=== PATIENT | male | born 1935 | race African-American/Black ===

== ENCOUNTER 2020-06-16 11:46 | Inpatient (IN) ==
[2020-06-16] MEDS ORDERED: ETOMIDATE 20 MG/10 ML VIAL IV ONE (11:57)
[2020-06-16] MEDS ORDERED: ROCURONIUM 100 MG/10 ML VIAL IV ONE (11:58)
[2020-06-16] MEDS ORDERED: SODIUM CHLORIDE 0.9% 1,000 ML IV STA (11:58)
[2020-06-16 12:16] LABS: Basophils % 0.1 % (0.0-0.8); Eosinophils % 0.1 % (0.00-10.9); Hemoglobin 12.5 GM/DL (14.0-18.0); Immature Granulocytes % 1.1 %; Immature Granulocytes Absolute 0.14 #; Lymphocytes # 1.2 10*3/uL (1.4-4.0); Lymphocytes % 9.2 % (21.2-54.2); Mean Corpuscular HGB Conc 32.1 GM/DL (32-36); Mean Corpuscular Volume 70.3 FL (87-102); Mean Platelet Volume 11.1 FL (9.6-12.0); Monocytes % 6.4 % (1.7-12.7); Neutrophils % 83.1 % (38.7-73.9); Platelet Count 323 T/CUMM (130-400); Red Blood Count 5.55 MC/CUMM (3.8-5.5); Red Cell Distribution Width 18.1 % (9.3-17.3); White Blood Count 13.3 T/CUMM (4-12)
[2020-06-16 12:36] LABS: INR 1.2; PT Patient Result 12.4 SECS (9.8-11.9); Partial Thromboplastin Time 27.1 SECS (23.9-33.8)
[2020-06-16] MEDS ORDERED: ASPIRIN 300 MG SUPP RECTAL STA (12:44)
[2020-06-16 12:47] LABS: Albumin 2.3 G/DL (3.4-5.0); Bilirubin,Total 0.9 MG/DL (0.2-1.0); Osmolality,Calculated 289.4 MOS/KG (273-304); Thyroid Stimulating Hormone 2.43 uIU/ml (0.358-3.74)
[2020-06-16] MEDS ORDERED: HEPARIN 5,000 UNIT/1 ML VIAL IV STA (12:47)
[2020-06-16 13:18] LABS: Bilirubin,Urine Negative (Negative); Blood, Urine Negative (Negative); Glucose,Urine (UA) 50 mg/dL (Negative); Ketones,Urine Negative (Negative); Mucus,Urine Occasional /LPF (Occasional); Nitrite,Urine Negative (Negative); Protein,Urine 100 MG/DL; RBC,Urine 8 /HPF (0-4); Squamous Epithelial Cell,Urine Occasional /HPF (0-10); Urine Appearance CLEAR (Clear); Urine Color Amber (Yellow); Urine Specific Gravity 1.024 (1.001-1.035); WBC,Urine 7 /HPF (0-6)
[2020-06-16 13:33] LABS: Barbiturates Screen,Urine Negative (Negative); Benzodiazepines Screen,Urine Negative (Negative); Cannabinoid Screen,Urine Negative (Negative); Opiate Screen,Urine Negative (Negative); Phencyclidine Screen,Urine Negative (Negative)
[2020-06-16] MEDS ORDERED: ATORVASTATIN 80 MG TABLET PEG STA (13:56)
[2020-06-16 13:58] LABS: ABG Base Excess 0.4 MMOL/L (-2.5-2.5); ABG HCO3 24.9 MMOL/L (20-26); ABG PCO2 36.6 MM HG (35-48); ABG PH 7.432 (7.35-7.45); ABG TCO2 21.6 MMOL/L (23-27)
[2020-06-16] MEDS ORDERED: ALBUTEROL 2.5 MG/3 ML NEB RESP TX PRN (13:58)
[2020-06-16] MEDS ORDERED: carvediloL 6.25 MG TABLET PEG STA (14:52)
[2020-06-16] MEDS: amLODIPine 5 MG TABLET PEG SCH (16:08)
[2020-06-16 16:15] LABS: CKMB % 2.1 %
[2020-06-16 16:20] LABS: Troponin I 6.05 NG/ML (0.00-0.045)
[2020-06-16] MEDS: SODIUM CHLORIDE 0.9% 1,000 ML IV SCH (16:45)
[2020-06-16] MEDS: ENOXAPARIN 100 MG/ML SYRINGE SUBCUT SCH (16:45)
[2020-06-16] MEDS ORDERED: carvediloL 12.5 MG TABLET PO SCH (17:00)
[2020-06-16] MEDS: PIPERACILLIN/TAZOBACTAM 3,375 MG in SODIUM CHLORIDE 0.9% 100 ML IV SCH (17:35)
[2020-06-16 17:54] LABS: CKMB % 2.1 %
[2020-06-16 17:56] LABS: Troponin I 5.64 NG/ML (0.00-0.045)
[2020-06-16] MEDS: carvediloL 12.5 MG TABLET PO SCH (20:50)
[2020-06-16] MEDS: ASCORBIC ACID 500 MG TABLET PEG SCH (20:50)
[2020-06-16] MEDS: MORPHINE 4 MG/1 ML VIAL IV PRN (20:50)
[2020-06-16] MEDS: ATORVASTATIN 10 MG TABLET PEG SCH (20:50)
[2020-06-16] MEDS ORDERED: ATORVASTATIN 40 MG TABLET PEG SCH (21:00)
[2020-06-16] MEDS ORDERED: carvediloL 25 MG TABLET PEG SCH (21:00)
[2020-06-16] MEDS ORDERED: METOPROLOL TARTRATE 25 MG TABLET PEG SCH (21:00)
[2020-06-17] MEDS: PIPERACILLIN/TAZOBACTAM 3,375 MG in SODIUM CHLORIDE 0.9% 100 ML IV SCH ×3 (01:15→16:50)
[2020-06-17] MEDS: SODIUM CHLORIDE 0.9% 1,000 ML IV SCH ×4 (01:15→20:15)
[2020-06-17 02:17] LABS: Basophils % 0.1 % (0.0-0.8); Eosinophils % 0.1 % (0.00-10.9); Hematocrit 34.4 VOL% (42.0-52.0); Immature Granulocytes % 0.9 %; Immature Granulocytes Absolute 0.12 #; Lymphocytes # 1.4 10*3/uL (1.4-4.0); Lymphocytes % 10.2 % (21.2-54.2); Mean Corpuscular Volume 70.2 FL (87-102); Mean Platelet Volume 10.4 FL (9.6-12.0); Monocytes % 10.9 % (1.7-12.7); Neutrophils % 77.8 % (38.7-73.9); Platelet Count 281 T/CUMM (130-400); Red Cell Distribution Width 16.9 % (9.3-17.3)
[2020-06-17 02:45] LABS: Albumin 1.9 G/DL (3.4-5.0); Bilirubin,Direct 0.56 MG/DL (0.0-0.20); Bilirubin,Indirect 0.4 MG/DL (0.0-1.0); Calcium 8.7 MG/DL (8.5-10.1); Osmolality,Calculated 289.1 MOS/KG (273-304); Total Protein 6.8 G/DL (6.4-8.3)
[2020-06-17 02:51] LABS: Risk Ratio 7.73; VLDL CHOLESTEROL 16.6 MG/DL
[2020-06-17 04:20] LABS: ABG Base Excess 1.2 MMOL/L (-2.5-2.5); ABG HCO3 25.5 MMOL/L (20-26); ABG PCO2 22.3 MM HG (35-48); ABG TCO2 19.3 MMOL/L (23-27)
[2020-06-17 04:30] LABS: ABG PH 7.594 (7.35-7.45)
[2020-06-17] MEDS: ENOXAPARIN 100 MG/ML SYRINGE SUBCUT SCH ×2 (04:41→14:53)
[2020-06-17 08:01] LABS: ABG Base Excess 0.5 MMOL/L (-2.5-2.5); ABG HCO3 24.9 MMOL/L (20-26); ABG PCO2 22.2 MM HG (35-48); ABG PH 7.586 (7.35-7.45); ABG TCO2 18.9 MMOL/L (23-27)
[2020-06-17] MEDS: ASPIRIN CHEW 81 MG TABLET PO SCH (08:22)
[2020-06-17] MEDS: ASCORBIC ACID 500 MG TABLET PEG SCH ×2 (08:22→21:08)
[2020-06-17] MEDS: carvediloL 12.5 MG TABLET PO SCH (08:22)
[2020-06-17] MEDS: POLYETHYLENE GLYCOL POWDER 17 GM PACK PO SCH (08:23)
[2020-06-17] MEDS: amLODIPine 5 MG TABLET PEG SCH (08:23)
[2020-06-17] MEDS: FERROUS SULFATE 325 MG TABLET PO SCH (08:23)
[2020-06-17] MEDS: LATANOPROST 0.005% OPH SOLN 2.5 ML BOTTLE BOTH EYES SCH (08:24)
[2020-06-17] MEDS ORDERED: PANTOPRAZOLE 40 MG TABLET PO SCH (09:00)
[2020-06-17] MEDS ORDERED: ASPIRIN CHEW 81 MG TABLET PO SCH (09:00)
[2020-06-17] MEDS ORDERED: SODIUM CHLORIDE 0.9% 500 ML IV ONE (10:50)
[2020-06-17] MEDS ORDERED: carvediloL 6.25 MG TABLET PEG ONE (12:06)
[2020-06-17] MEDS: VANCOMYCIN INJ 1,250 MG in SODIUM CHLORIDE 0.9% 250 ML IV SCH (14:02)
[2020-06-17] MEDS: ATORVASTATIN 10 MG TABLET PEG SCH (21:08)
[2020-06-17] MEDS: carvediloL 25 MG TABLET PEG SCH (21:08)
[2020-06-17] MEDS: MORPHINE 4 MG/1 ML VIAL IV PRN (21:09)
[2020-06-18] MEDS: SODIUM CHLORIDE 0.9% 1,000 ML IV SCH ×3 (00:05→18:20)
[2020-06-18] MEDS: VANCOMYCIN INJ 1,250 MG in SODIUM CHLORIDE 0.9% 250 ML IV SCH (01:50)
[2020-06-18 02:27] LABS: Basophils % 0.2 % (0.0-0.8); Eosinophils % 0.2 % (0.00-10.9); Hematocrit 28.1 VOL% (42.0-52.0); Hemoglobin 9.2 GM/DL (14.0-18.0); Immature Granulocytes % 0.8 %; Immature Granulocytes Absolute 0.08 #; Lymphocytes # 1.5 10*3/uL (1.4-4.0); Lymphocytes % 14.4 % (21.2-54.2); Mean Corpuscular HGB Conc 32.7 GM/DL (32-36); Mean Corpuscular Volume 68.5 FL (87-102); Mean Platelet Volume 11.3 FL (9.6-12.0); Monocytes % 8.7 % (1.7-12.7); Neutrophils % 75.7 % (38.7-73.9); Platelet Count 251 T/CUMM (130-400); Red Cell Distribution Width 16.5 % (9.3-17.3); White Blood Count 10.2 T/CUMM (4-12)
[2020-06-18] MEDS: PIPERACILLIN/TAZOBACTAM 3,375 MG in SODIUM CHLORIDE 0.9% 100 ML IV SCH (02:27)
[2020-06-18] MEDS: ENOXAPARIN 100 MG/ML SYRINGE SUBCUT SCH ×2 (02:32→16:40)
[2020-06-18 02:48] LABS: Albumin 1.7 G/DL (3.4-5.0); Bilirubin,Direct 0.82 MG/DL (0.0-0.20); Bilirubin,Indirect 0.4 MG/DL (0.0-1.0); Bilirubin,Total 1.2 MG/DL (0.2-1.0); Osmolality,Calculated 293.7 MOS/KG (273-304); Total Protein 5.9 G/DL (6.4-8.3)
[2020-06-18 04:19] LABS: ABG Base Excess -3.2 MMOL/L (-2.5-2.5); ABG HCO3 21.8 MMOL/L (20-26); ABG PCO2 27.2 MM HG (35-48); ABG PH 7.465 (7.35-7.45); ABG TCO2 17.8 MMOL/L (23-27); Allen Test Positive; Pt O2 Delivery Device Ventilator
[2020-06-18] MEDS: ASPIRIN CHEW 81 MG TABLET PO SCH (09:12)
[2020-06-18] MEDS: ASCORBIC ACID 500 MG TABLET PEG SCH ×2 (09:12→20:22)
[2020-06-18] MEDS: amLODIPine 5 MG TABLET PEG SCH (09:12)
[2020-06-18] MEDS: carvediloL 25 MG TABLET PEG SCH ×2 (09:12→20:22)
[2020-06-18] MEDS: FERROUS SULFATE 325 MG TABLET PO SCH (09:13)
[2020-06-18] MEDS: POLYETHYLENE GLYCOL POWDER 17 GM PACK PO SCH (09:14)
[2020-06-18] MEDS: PANTOPRAZOLE 40 MG VIAL IV SCH (09:15)
[2020-06-18] MEDS: LATANOPROST 0.005% OPH SOLN 2.5 ML BOTTLE BOTH EYES SCH (09:21)
[2020-06-18] MEDS: ATORVASTATIN 10 MG TABLET PEG SCH (20:22)
[2020-06-19 03:23] LABS: Basophils % 0.1 % (0.0-0.8); Eosinophils % 0.1 % (0.00-10.9); Hemoglobin 10.3 GM/DL (14.0-18.0); Immature Granulocytes % 0.4 %; Immature Granulocytes Absolute 0.04 #; Lymphocytes # 1.3 10*3/uL (1.4-4.0); Lymphocytes % 13.3 % (21.2-54.2); Mean Corpuscular HGB Conc 32.2 GM/DL (32-36); Mean Corpuscular Volume 69.1 FL (87-102); Mean Platelet Volume 11.6 FL (9.6-12.0); Monocytes % 8.5 % (1.7-12.7); Neutrophils % 77.6 % (38.7-73.9); Platelet Count 271 T/CUMM (130-400); Red Blood Count 4.63 MC/CUMM (3.8-5.5)
[2020-06-19 03:38] LABS: Albumin 1.6 G/DL (3.4-5.0); Bilirubin,Direct 1.14 MG/DL (0.0-0.20); Bilirubin,Indirect 0.8 MG/DL (0.0-1.0); Bilirubin,Total 1.9 MG/DL (0.2-1.0); Calcium 8.3 MG/DL (8.5-10.1); Osmolality,Calculated 290.7 MOS/KG (273-304); Total Protein 6.1 G/DL (6.4-8.3)
[2020-06-19] MEDS ORDERED: ENOXAPARIN 40 MG/0.4 ML SYRINGE SUBCUT SCH (09:00)
[2020-06-19] MEDS: FERROUS SULFATE 325 MG TABLET PO SCH (10:07)
[2020-06-19] MEDS: ASPIRIN CHEW 81 MG TABLET PO SCH (10:07)
[2020-06-19] MEDS: PANTOPRAZOLE 40 MG VIAL IV SCH (10:07)
[2020-06-19] MEDS: carvediloL 25 MG TABLET PEG SCH ×2 (10:08→21:20)
[2020-06-19] MEDS: SODIUM CHLORIDE 0.9% 1,000 ML IV SCH ×2 (10:08→17:23)
[2020-06-19] MEDS: amLODIPine 5 MG TABLET PEG SCH (10:08)
[2020-06-19] MEDS: ENOXAPARIN 100 MG/ML SYRINGE SUBCUT SCH ×2 (10:08→21:21)
[2020-06-19] MEDS: POLYETHYLENE GLYCOL POWDER 17 GM PACK PO SCH (10:09)
[2020-06-19] MEDS: ASCORBIC ACID 500 MG TABLET PEG SCH ×2 (10:23→21:20)
[2020-06-19] MEDS: LATANOPROST 0.005% OPH SOLN 2.5 ML BOTTLE BOTH EYES SCH (11:00)
[2020-06-19] MEDS: ATORVASTATIN 10 MG TABLET PEG SCH (21:26)
[2020-06-20] MEDS: SODIUM CHLORIDE 0.9% 1,000 ML IV SCH ×3 (03:17→18:05)
[2020-06-20 05:39] LABS: Basophils % 0.1 % (0.0-0.8); Eosinophils % 0.1 % (0.00-10.9); Hematocrit 29.7 VOL% (42.0-52.0); Hemoglobin 9.8 GM/DL (14.0-18.0); Immature Granulocytes % 0.6 %; Immature Granulocytes Absolute 0.05 #; Lymphocytes # 1.2 10*3/uL (1.4-4.0); Lymphocytes % 14.8 % (21.2-54.2); Mean Corpuscular Volume 68.6 FL (87-102); Mean Platelet Volume 11.9 FL (9.6-12.0); Neutrophils % 76.4 % (38.7-73.9); Platelet Count 221 T/CUMM (130-400); Red Blood Count 4.33 MC/CUMM (3.8-5.5); Red Cell Distribution Width 16.5 % (9.3-17.3); White Blood Count 8.2 T/CUMM (4-12)
[2020-06-20 05:47] LABS: Albumin 1.5 G/DL (3.4-5.0); Bilirubin,Direct 1.08 MG/DL (0.0-0.20); Bilirubin,Indirect 0.7 MG/DL (0.0-1.0); Bilirubin,Total 1.8 MG/DL (0.2-1.0); Calcium 7.9 MG/DL (8.5-10.1); Osmolality,Calculated 290.7 MOS/KG (273-304); Total Protein 5.5 G/DL (6.4-8.3)
[2020-06-20 06:14] LABS: Hypochromasia Slight; Microcytosis 2+; Platelet Estimate Normal; Target Cells Few
[2020-06-20] MEDS: ASCORBIC ACID 500 MG TABLET PEG SCH ×2 (08:07→20:55)
[2020-06-20] MEDS: FERROUS SULFATE 325 MG TABLET PO SCH (08:07)
[2020-06-20] MEDS: carvediloL 25 MG TABLET PEG SCH ×2 (08:07→20:55)
[2020-06-20] MEDS: amLODIPine 5 MG TABLET PEG SCH (08:07)
[2020-06-20] MEDS: ASPIRIN CHEW 81 MG TABLET PO SCH (08:07)
[2020-06-20] MEDS: POLYETHYLENE GLYCOL POWDER 17 GM PACK PO SCH (08:08)
[2020-06-20] MEDS: ENOXAPARIN 100 MG/ML SYRINGE SUBCUT SCH ×2 (08:08→20:55)
[2020-06-20] MEDS: PANTOPRAZOLE 40 MG VIAL IV SCH (08:09)
[2020-06-20] MEDS: LATANOPROST 0.005% OPH SOLN 2.5 ML BOTTLE BOTH EYES SCH (09:38)
[2020-06-20] MEDS: ATORVASTATIN 10 MG TABLET PEG SCH (20:55)
[2020-06-20] MEDS: MORPHINE 4 MG/1 ML VIAL IV PRN (20:55)
[2020-06-21] MEDS: SODIUM CHLORIDE 0.9% 1,000 ML IV SCH ×2 (03:00→17:13)
[2020-06-21] MEDS: MORPHINE 4 MG/1 ML VIAL IV PRN (06:28)
[2020-06-21 08:32] LABS: Basophils % 0.1 % (0.0-0.8); Eosinophils % 0.2 % (0.00-10.9); Hemoglobin 9.9 GM/DL (14.0-18.0); Immature Granulocytes % 0.5 %; Immature Granulocytes Absolute 0.04 #; Lymphocytes # 1.3 10*3/uL (1.4-4.0); Lymphocytes % 16.5 % (21.2-54.2); Mean Platelet Volume 10.4 FL (9.6-12.0); Monocytes % 7.7 % (1.7-12.7); Platelet Count 239 T/CUMM (130-400); Red Blood Count 4.35 MC/CUMM (3.8-5.5); Red Cell Distribution Width 16.2 % (9.3-17.3); White Blood Count 8.1 T/CUMM (4-12)
[2020-06-21 08:58] LABS: Calcium 7.9 MG/DL (8.5-10.1); Osmolality,Calculated 286.8 MOS/KG (273-304)
[2020-06-21] MEDS: ASPIRIN CHEW 81 MG TABLET PO SCH (09:18)
[2020-06-21] MEDS: FERROUS SULFATE 325 MG TABLET PO SCH (09:18)
[2020-06-21] MEDS: ASCORBIC ACID 500 MG TABLET PEG SCH ×2 (09:18→20:47)
[2020-06-21] MEDS: POTASSIUM CHLORIDE 20 MEQ TABLET PO PRN (09:21)
[2020-06-21] MEDS: amLODIPine 5 MG TABLET PEG SCH (09:21)
[2020-06-21] MEDS: carvediloL 25 MG TABLET PEG SCH ×2 (09:21→20:47)
[2020-06-21] MEDS: ENOXAPARIN 100 MG/ML SYRINGE SUBCUT SCH ×2 (09:21→20:47)
[2020-06-21] MEDS: PANTOPRAZOLE 40 MG VIAL IV SCH (09:21)
[2020-06-21] MEDS: POLYETHYLENE GLYCOL POWDER 17 GM PACK PO SCH (09:26)
[2020-06-21] MEDS ORDERED: POTASSIUM CHLORIDE 20 MEQ/15 ML UDCUP PER TUBE PRN (09:44)
[2020-06-21] MEDS: LATANOPROST 0.005% OPH SOLN 2.5 ML BOTTLE BOTH EYES SCH (17:13)
[2020-06-22 05:55] LABS: Basophils % 0.1 % (0.0-0.8); Eosinophils # 0.1 10*3/uL (0.0-0.87); Eosinophils % 0.8 % (0.00-10.9); Hematocrit 29.9 VOL% (42.0-52.0); Hemoglobin 9.9 GM/DL (14.0-18.0); Immature Granulocytes % 0.5 %; Immature Granulocytes Absolute 0.04 #; Lymphocytes # 1.4 10*3/uL (1.4-4.0); Lymphocytes % 17.6 % (21.2-54.2); Mean Corpuscular HGB Conc 33.1 GM/DL (32-36); Mean Corpuscular Volume 68.6 FL (87-102); Mean Platelet Volume 11.5 FL (9.6-12.0); Monocytes % 8.3 % (1.7-12.7); Neutrophils % 72.7 % (38.7-73.9); Platelet Count 213 T/CUMM (130-400); Red Blood Count 4.36 MC/CUMM (3.8-5.5); Red Cell Distribution Width 16.4 % (9.3-17.3); White Blood Count 7.8 T/CUMM (4-12)
[2020-06-22 06:01] LABS: Calcium 7.6 MG/DL (8.5-10.1)
[2020-06-22 06:05] LABS: Calcium 7.6 MG/DL (8.5-10.1); Osmolality,Calculated 291.7 MOS/KG (273-304)
[2020-06-22 06:06] LABS: Albumin 1.4 G/DL (3.4-5.0); Calcium 7.6 MG/DL (8.5-10.1); Osmolality,Calculated 291.7 MOS/KG (273-304); Total Protein 5.3 G/DL (6.4-8.3)
[2020-06-22] MEDS ORDERED: POTASSIUM CHLORIDE 20 MEQ TABLET PO ONE (06:56)
[2020-06-22 07:28] LABS: Platelet Estimate Normal
[2020-06-22 07:29] LABS: Anisocytosis 1+; Burr Cells Few; Ovalocytes Few; Target Cells 1+
[2020-06-22] MEDS: ASPIRIN CHEW 81 MG TABLET PO SCH (09:29)
[2020-06-22] MEDS: POLYETHYLENE GLYCOL POWDER 17 GM PACK PO SCH (09:29)
[2020-06-22] MEDS: FERROUS SULFATE 325 MG TABLET PO SCH (09:29)
[2020-06-22] MEDS: ASCORBIC ACID 500 MG TABLET PEG SCH ×2 (09:29→21:44)
[2020-06-22] MEDS: carvediloL 25 MG TABLET PEG SCH ×2 (09:29→21:44)
[2020-06-22] MEDS: PANTOPRAZOLE 40 MG VIAL IV SCH (09:30)
[2020-06-22] MEDS: ENOXAPARIN 100 MG/ML SYRINGE SUBCUT SCH (09:30)
[2020-06-22] MEDS: LATANOPROST 0.005% OPH SOLN 2.5 ML BOTTLE BOTH EYES SCH (09:48)
[2020-06-22] MEDS ORDERED: LOSARTAN 25 MG TABLET PO SCH (11:49)
[2020-06-22] MEDS ORDERED: LOSARTAN 25 MG TABLET NG SCH (11:49)
[2020-06-22 19:04] LABS: Calcium 7.8 MG/DL (8.5-10.1)
[2020-06-22] MEDS: SODIUM CHLORIDE 0.9% 1,000 ML IV SCH (21:43)
[2020-06-22] MEDS: APIXABAN 2.5 MG TABLET PO SCH (21:44)
[2020-06-23] MEDS: POTASSIUM CHLORIDE 20 MEQ TABLET PO PRN ×4 (00:24→07:17)
[2020-06-23] MEDS ORDERED: ENOXAPARIN 30 MG/0.3 ML SYRINGE SUBCUT SCH ×2 (09:00→10:00)
[2020-06-23] MEDS: FERROUS SULFATE 325 MG TABLET PO SCH (09:13)
[2020-06-23] MEDS: POLYETHYLENE GLYCOL POWDER 17 GM PACK PO SCH (09:13)
[2020-06-23] MEDS: ASCORBIC ACID 500 MG TABLET PEG SCH (09:13)
[2020-06-23] MEDS: ASPIRIN CHEW 81 MG TABLET PO SCH (09:13)
[2020-06-23] MEDS: PANTOPRAZOLE 40 MG VIAL IV SCH (09:14)
[2020-06-23] MEDS: carvediloL 25 MG TABLET PEG SCH (09:14)
[2020-06-23] MEDS: APIXABAN 2.5 MG TABLET PO SCH (09:14)
[2020-06-23] MEDS: LATANOPROST 0.005% OPH SOLN 2.5 ML BOTTLE BOTH EYES SCH (09:17)
[2020-06-23] MEDS: SODIUM CHLORIDE 0.9% 1,000 ML IV SCH ×2 (09:17→09:18)
[2020-06-23 09:36] LABS: Calcium 7.3 MG/DL (8.5-10.1); Osmolality,Calculated 278.4 MOS/KG (273-304)
[2020-06-23 09:54] LABS: Basophils % 0.1 % (0.0-0.8); Eosinophils # 0.1 10*3/uL (0.0-0.87); Eosinophils % 1.1 % (0.00-10.9); Hematocrit 30.4 VOL% (42.0-52.0); Hemoglobin 9.8 GM/DL (14.0-18.0); Immature Granulocytes % 0.8 %; Immature Granulocytes Absolute 0.06 #; Lymphocytes # 1.5 10*3/uL (1.4-4.0); Lymphocytes % 20.4 % (21.2-54.2); Mean Corpuscular HGB Conc 32.2 GM/DL (32-36); Mean Corpuscular Volume 69.9 FL (87-102); Monocytes % 7.2 % (1.7-12.7); Neutrophils % 70.4 % (38.7-73.9); Platelet Count 193 T/CUMM (130-400); Red Blood Count 4.35 MC/CUMM (3.8-5.5); Red Cell Distribution Width 18.7 % (9.3-17.3); White Blood Count 7.3 T/CUMM (4-12)
[2020-06-23] MEDS ORDERED: MAGNESIUM SULF RIDER 4 GM in PREMIX 1 EACH IV PRN (09:57)
[2020-06-23] MEDS ORDERED: MAGNESIUM SULF RIDER 2 GM in PREMIX 1 EACH IV PRN (09:57)
[2020-06-23] MEDS ORDERED: LOSARTAN 25 MG TABLET PO ONE (10:02)
[2020-06-23 10:19] LABS: Hypochromasia 4+; Microcytosis 4+; Platelet Estimate Adequate; Polychromasia Slight; Target Cells Few
[2020-06-23 17:56] VITALS: BP 122/63
[2020-06-24] MEDS ORDERED: LOSARTAN 25 MG TABLET NG SCH (09:00)
== END 2020-06-23 17:23 | disposition home health service (06) | DRG 280 ==
LOC: EDUNIT# → EDBD → N.ED 11:46 → N.EDINP 13:58 → SUATTDRO 13:58 → N.ICU 14:55 → N.TELES 06-19 16:00
PROVIDERS: ADMIT Internal Medicine; ATTEND Internal Medicine

== ENCOUNTER 2020-07-06 11:09 | Inpatient (IN) ==
[2020-07-06] MEDS ORDERED: NALOXONE 0.4 MG/ML VIAL ONE (11:50)
[2020-07-06] MEDS: NALOXONE 0.4 MG/ML VIAL IV STA ×2 (11:51→11:56)
[2020-07-06] MEDS ORDERED: NALOXONE 0.4 MG/ML VIAL IV STA (11:56)
[2020-07-06 11:58] LABS: Basophils % 0.1 % (0.0-0.8); Hematocrit 27.7 VOL% (42.0-52.0); Hemoglobin 9.5 GM/DL (14.0-18.0); Immature Granulocytes % 1.3 %; Immature Granulocytes Absolute 0.29 #; Lymphocytes # 1.2 10*3/uL (1.4-4.0); Lymphocytes % 5.4 % (21.2-54.2); Mean Corpuscular HGB Conc 34.3 GM/DL (32-36); Mean Platelet Volume 11.5 FL (9.6-12.0); Monocytes % 5.9 % (1.7-12.7); NRBC # 0.04 10*3/uL; Neutrophils % 87.3 % (38.7-73.9); Platelet Count 327 T/CUMM (130-400); Red Cell Distribution Width 15.7 % (9.3-17.3); White Blood Count 21.7 T/CUMM (4-12)
[2020-07-06 12:25] LABS: Band Neutrophils 29 % (0-10); Lymphocytes 7 % (20-55); Platelet Estimate Normal; Segmented Neutrophils 58 % (50-85); Total Cells Counted 100
[2020-07-06 12:26] LABS: Anisocytosis 1+; Macrocytosis 1+; Target Cells Few
[2020-07-06 12:27] LABS: Albumin 1.3 G/DL (3.4-5.0); Bilirubin,Total 0.9 MG/DL (0.2-1.0); Calcium 8.4 MG/DL (8.5-10.1); Osmolality,Calculated 298.1 MOS/KG (273-304); Total Protein 6.4 G/DL (6.4-8.3)
[2020-07-06] MEDS ORDERED: SODIUM CHLORIDE 0.9% 1,000 ML IV STA (14:00)
[2020-07-06] MEDS: PIPERACILLIN/TAZOBACTAM 3,375 MG in SODIUM CHLORIDE 0.9% 100 ML IV SCH (14:10)
[2020-07-06 14:16] LABS: Bacteria,Urine Many /HPF (Few); Bilirubin,Urine Negative (Negative); Blood, Urine Large mg/dL (Negative); Glucose,Urine (UA) Negative (Negative); Ketones,Urine Negative (Negative); Mucus,Urine Few /LPF (Occasional); Nitrite,Urine Negative (Negative); Protein,Urine 100 MG/DL; RBC,Urine 782 /HPF (0-4); Urine Appearance CLOUDY (Clear); Urine Color Amber (Yellow); WBC,Urine 718 /HPF (0-6)
[2020-07-06] MEDS ORDERED: ONDANSETRON 4 MG/2 ML VIAL IV PRN (15:14)
[2020-07-06] MEDS ORDERED: ALBUTEROL 2.5 MG/3 ML NEB RESP TX PRN (15:14)
[2020-07-06] MEDS ORDERED: SODIUM CHLORIDE 0.9% IV STA (15:16)
[2020-07-06] MEDS: FAMOTIDINE 20 MG/2 ML VIAL IV SCH (16:00)
[2020-07-06] MEDS: LEVOFLOXACIN INJ 750 MG in PREMIX 1 EACH IV SCH (16:05)
[2020-07-06] MEDS: PHENYLEPHRINE DRIP 40 MG/250 ML PREMIX IV SCH (17:44)
[2020-07-06] MEDS: LACTATED RINGERS 1,000 ML IV SCH (17:45)
[2020-07-06] MEDS: ENOXAPARIN 30 MG/0.3 ML SYRINGE SUBCUT SCH (22:00)
[2020-07-07] MEDS: LACTATED RINGERS 1,000 ML IV SCH ×2 (01:45→08:45)
[2020-07-07] MEDS: PIPERACILLIN/TAZOBACTAM 3,375 MG in SODIUM CHLORIDE 0.9% 100 ML IV SCH ×2 (02:00→14:23)
[2020-07-07 03:19] LABS: ABG HCO3 21.1 MMOL/L (20-26); ABG Oxygen Saturation 98.5 % (95-100); ABG PCO2 29.9 MM HG (35-48); ABG PH 7.425 (7.35-7.45); ABG TCO2 18.1 MMOL/L (23-27)
[2020-07-07 05:20] LABS: Basophils # 0.1 10*3/uL (0.0-0.2); Basophils % 0.2 % (0.0-0.8); Eosinophils # 0.1 10*3/uL (0.0-0.87); Eosinophils % 0.3 % (0.00-10.9); Hematocrit 27.8 VOL% (42.0-52.0); Hemoglobin 9.3 GM/DL (14.0-18.0); Immature Granulocytes % 1.4 %; Immature Granulocytes Absolute 0.29 #; Lymphocytes # 1.1 10*3/uL (1.4-4.0); Lymphocytes % 5.1 % (21.2-54.2); Mean Corpuscular HGB Conc 33.5 GM/DL (32-36); Mean Platelet Volume 11.7 FL (9.6-12.0); Monocytes % 6.7 % (1.7-12.7); Neutrophils % 86.3 % (38.7-73.9); Platelet Count 266 T/CUMM (130-400); Red Blood Count 4.15 MC/CUMM (3.8-5.5); Red Cell Distribution Width 15.7 % (9.3-17.3); White Blood Count 21.1 T/CUMM (4-12)
[2020-07-07 05:51] LABS: Band Neutrophils 1 % (0-10); Hypochromasia Slight; Lymphocytes 5 % (20-55); Microcytosis 1+; Platelet Estimate Normal; Segmented Neutrophils 89 % (50-85); Total Cells Counted 100
[2020-07-07 06:01] LABS: Albumin 1.2 G/DL (3.4-5.0); Bilirubin,Total 1.3 MG/DL (0.2-1.0); Calcium 8.1 MG/DL (8.5-10.1); Osmolality,Calculated 303.8 MOS/KG (273-304); Total Protein 6.1 G/DL (6.4-8.3); Troponin I 0.085 NG/ML (0.00-0.045)
[2020-07-07] MEDS ORDERED: SODIUM BICARBONATE 50 MEQ/50 ML VIAL IV ONE (08:07)
[2020-07-07] MEDS ORDERED: SODIUM CHLORIDE 0.9% 1,000 ML IV SCH (08:30)
[2020-07-07] MEDS: SODIUM BICARB INJ 100 MEQ in STERILE WATER INJ 1,000 ML IV SCH ×2 (09:47→17:49)
[2020-07-07] MEDS: MENTHOL/ZINC OXIDE OINT 71 GM JAR TOP SCH ×2 (14:23→20:53)
[2020-07-07] MEDS: PHENYLEPHRINE DRIP 40 MG/250 ML PREMIX IV SCH ×2 (16:01→17:32)
[2020-07-07] MEDS: FAMOTIDINE 20 MG/2 ML VIAL IV SCH (16:01)
[2020-07-07] MEDS: ENOXAPARIN 30 MG/0.3 ML SYRINGE SUBCUT SCH (20:52)
[2020-07-08] MEDS: PIPERACILLIN/TAZOBACTAM 3,375 MG in SODIUM CHLORIDE 0.9% 100 ML IV SCH ×2 (02:35→14:32)
[2020-07-08] MEDS: SODIUM BICARB INJ 100 MEQ in STERILE WATER INJ 1,000 ML IV SCH ×3 (02:36→20:04)
[2020-07-08 04:48] LABS: Basophils % 0.1 % (0.0-0.8); Hematocrit 26.6 VOL% (42.0-52.0); Hemoglobin 9.1 GM/DL (14.0-18.0); Immature Granulocytes % 1.3 %; Immature Granulocytes Absolute 0.23 #; Lymphocytes # 0.8 10*3/uL (1.4-4.0); Lymphocytes % 4.5 % (21.2-54.2); Mean Corpuscular HGB Conc 34.2 GM/DL (32-36); Mean Corpuscular Volume 64.4 FL (87-102); Mean Platelet Volume 12.1 FL (9.6-12.0); Monocytes % 4.8 % (1.7-12.7); Neutrophils % 89.3 % (38.7-73.9); Platelet Count 268 T/CUMM (130-400); Red Blood Count 4.13 MC/CUMM (3.8-5.5); Red Cell Distribution Width 15.1 % (9.3-17.3); White Blood Count 17.2 T/CUMM (4-12)
[2020-07-08 05:07] LABS: Albumin 1.1 G/DL (3.4-5.0); Bilirubin,Total 1.4 MG/DL (0.2-1.0); Calcium 8.1 MG/DL (8.5-10.1); Osmolality,Calculated 318.3 MOS/KG (273-304); Total Protein 5.6 G/DL (6.4-8.3)
[2020-07-08 05:19] LABS: Band Neutrophils 4 % (0-10); Hypochromasia Slight; Lymphocytes 5 % (20-55); Microcytosis 1+; Platelet Estimate Normal; Segmented Neutrophils 90 % (50-85); Total Cells Counted 100
[2020-07-08] MEDS: MENTHOL/ZINC OXIDE OINT 71 GM JAR TOP SCH ×2 (08:34→20:58)
[2020-07-08] MEDS: PHENYLEPHRINE DRIP 40 MG/250 ML PREMIX IV SCH ×4 (09:34→23:54)
[2020-07-08] MEDS: LEVOFLOXACIN INJ 750 MG in PREMIX 1 EACH IV SCH (14:32)
[2020-07-08] MEDS: FAMOTIDINE 20 MG/2 ML VIAL IV SCH (16:54)
[2020-07-08] MEDS: ENOXAPARIN 30 MG/0.3 ML SYRINGE SUBCUT SCH (20:58)
[2020-07-09] MEDS: INSULIN REGULAR 100 UNIT/ML SUBCUT SCH ×4 (00:19→18:21)
[2020-07-09] MEDS: PIPERACILLIN/TAZOBACTAM 3,375 MG in SODIUM CHLORIDE 0.9% 100 ML IV SCH (02:29)
[2020-07-09 03:46] LABS: Basophils % 0.1 % (0.0-0.8); Hematocrit 24.9 VOL% (42.0-52.0); Hemoglobin 8.8 GM/DL (14.0-18.0); Immature Granulocytes % 3.9 %; Immature Granulocytes Absolute 0.64 #; Lymphocytes # 0.8 10*3/uL (1.4-4.0); Mean Corpuscular HGB Conc 35.3 GM/DL (32-36); Mean Corpuscular Volume 62.9 FL (87-102); Mean Platelet Volume 11.8 FL (9.6-12.0); Monocytes % 6.3 % (1.7-12.7); Neutrophils % 84.7 % (38.7-73.9); Platelet Count 249 T/CUMM (130-400); Red Blood Count 3.96 MC/CUMM (3.8-5.5); Red Cell Distribution Width 15.1 % (9.3-17.3); White Blood Count 16.4 T/CUMM (4-12)
[2020-07-09 04:05] LABS: Bilirubin,Total 1.5 MG/DL (0.2-1.0); Calcium 7.5 MG/DL (8.5-10.1); Total Protein 5.2 G/DL (6.4-8.3)
[2020-07-09] MEDS: MENTHOL/ZINC OXIDE OINT 71 GM JAR TOP SCH ×3 (04:30→21:19)
[2020-07-09 04:41] LABS: Band Neutrophils 9 % (0-10); Lymphocytes 8 % (20-55); Segmented Neutrophils 81 % (50-85)
[2020-07-09 04:42] LABS: Hypochromasia 1+; Microcytosis 2+; Platelet Estimate Normal; Target Cells Few; Total Cells Counted 100
[2020-07-09] MEDS: SODIUM BICARB INJ 100 MEQ in STERILE WATER INJ 1,000 ML IV SCH ×2 (04:52→14:46)
[2020-07-09] MEDS: PHENYLEPHRINE DRIP 40 MG/250 ML PREMIX IV SCH ×3 (06:25→22:34)
[2020-07-09] MEDS: cefTRIAXone 1,000 MG in SYRINGE 1 EACH IV SCH (12:35)
[2020-07-09] MEDS: FAMOTIDINE 20 MG/2 ML VIAL IV SCH (16:48)
[2020-07-09] MEDS: ENOXAPARIN 30 MG/0.3 ML SYRINGE SUBCUT SCH (21:19)
[2020-07-10] MEDS: INSULIN REGULAR 100 UNIT/ML SUBCUT SCH ×4 (00:50→18:00)
[2020-07-10] MEDS: SODIUM BICARB INJ 100 MEQ in STERILE WATER INJ 1,000 ML IV SCH ×2 (00:51→09:05)
[2020-07-10 04:39] LABS: Basophils % 0.1 % (0.0-0.8); Hematocrit 23.6 VOL% (42.0-52.0); Hemoglobin 8.5 GM/DL (14.0-18.0); Immature Granulocytes % 5.2 %; Immature Granulocytes Absolute 0.74 #; Lymphocytes # 1.1 10*3/uL (1.4-4.0); Lymphocytes % 7.7 % (21.2-54.2); Mean Corpuscular Volume 61.9 FL (87-102); Monocytes % 7.2 % (1.7-12.7); NRBC # 0.02 10*3/uL; Neutrophils % 79.8 % (38.7-73.9); Platelet Count 242 T/CUMM (130-400); Red Blood Count 3.81 MC/CUMM (3.8-5.5); Red Cell Distribution Width 14.9 % (9.3-17.3); White Blood Count 14.4 T/CUMM (4-12)
[2020-07-10 05:01] LABS: Bilirubin,Total 1.7 MG/DL (0.2-1.0); Calcium 7.4 MG/DL (8.5-10.1); Osmolality,Calculated 303.2 MOS/KG (273-304); Total Protein 5.1 G/DL (6.4-8.3)
[2020-07-10 05:13] LABS: Lymphocytes 6 % (20-55); Platelet Estimate Adequate; Segmented Neutrophils 86 % (50-85); Total Cells Counted 100
[2020-07-10 05:14] LABS: Hypochromasia 1+; Microcytosis 1+; Ovalocytes Slight; Target Cells Few
[2020-07-10] MEDS: MENTHOL/ZINC OXIDE OINT 71 GM JAR TOP SCH ×2 (08:35→21:33)
[2020-07-10] MEDS: SODIUM CHLORIDE 0.9% 1,000 ML IV SCH ×2 (11:06→21:33)
[2020-07-10] MEDS: cefTRIAXone 1,000 MG in SYRINGE 1 EACH IV SCH (12:23)
[2020-07-10] MEDS: FAMOTIDINE 20 MG/2 ML VIAL IV SCH (15:55)
[2020-07-10] MEDS: PHENYLEPHRINE DRIP 40 MG/250 ML PREMIX IV SCH ×2 (16:00→20:37)
[2020-07-10] MEDS: ENOXAPARIN 30 MG/0.3 ML SYRINGE SUBCUT SCH (21:33)
[2020-07-11] MEDS: INSULIN REGULAR 100 UNIT/ML SUBCUT SCH ×4 (00:08→18:19)
[2020-07-11] MEDS: PHENYLEPHRINE DRIP 40 MG/250 ML PREMIX IV SCH ×3 (01:48→16:01)
[2020-07-11 04:07] LABS: Basophils % 0.2 % (0.0-0.8); Hematocrit 23.5 VOL% (42.0-52.0); Hemoglobin 8.4 GM/DL (14.0-18.0); Immature Granulocytes % 6.7 %; Immature Granulocytes Absolute 1.23 #; Lymphocytes # 1.4 10*3/uL (1.4-4.0); Lymphocytes % 7.4 % (21.2-54.2); Mean Corpuscular HGB Conc 35.7 GM/DL (32-36); Monocytes % 7.7 % (1.7-12.7); Platelet Count 266 T/CUMM (130-400); Red Blood Count 3.79 MC/CUMM (3.8-5.5); Red Cell Distribution Width 15.2 % (9.3-17.3); White Blood Count 18.5 T/CUMM (4-12)
[2020-07-11 04:28] LABS: Bilirubin,Total 1.3 MG/DL (0.2-1.0); Calcium 7.2 MG/DL (8.5-10.1); Osmolality,Calculated 308.8 MOS/KG (273-304); Total Protein 5.2 G/DL (6.4-8.3)
[2020-07-11 04:34] LABS: Hypochromasia 2+; Lymphocytes 6 % (20-55); Microcytosis Slight; Platelet Estimate Adequate; Segmented Neutrophils 87 % (50-85); Target Cells Slight; Total Cells Counted 100
[2020-07-11] MEDS: MENTHOL/ZINC OXIDE OINT 71 GM JAR TOP SCH ×3 (05:15→21:18)
[2020-07-11] MEDS: SODIUM CHLORIDE 0.9% 1,000 ML IV SCH ×2 (06:41→16:01)
[2020-07-11] MEDS: cefTRIAXone 1,000 MG in SYRINGE 1 EACH IV SCH (11:29)
[2020-07-11] MEDS: FAMOTIDINE 20 MG/2 ML VIAL IV SCH (16:01)
[2020-07-11] MEDS: ENOXAPARIN 30 MG/0.3 ML SYRINGE SUBCUT SCH (21:18)
[2020-07-12] MEDS: PHENYLEPHRINE DRIP 40 MG/250 ML PREMIX IV SCH (00:24)
[2020-07-12] MEDS: INSULIN REGULAR 100 UNIT/ML SUBCUT SCH ×5 (01:16→23:14)
[2020-07-12] MEDS: SODIUM CHLORIDE 0.9% 1,000 ML IV SCH ×2 (02:09→12:09)
[2020-07-12] MEDS: MENTHOL/ZINC OXIDE OINT 71 GM JAR TOP SCH ×2 (08:03→20:51)
[2020-07-12] MEDS: cefTRIAXone 1,000 MG in SYRINGE 1 EACH IV SCH (12:59)
[2020-07-12] MEDS: FAMOTIDINE 20 MG/2 ML VIAL IV SCH (18:23)
[2020-07-12] MEDS: ENOXAPARIN 30 MG/0.3 ML SYRINGE SUBCUT SCH (20:52)
[2020-07-13] MEDS: SODIUM CHLORIDE 0.9% 1,000 ML IV SCH ×2 (00:50→11:43)
[2020-07-13 05:30] LABS: Basophils % 0.1 % (0.0-0.8); Hematocrit 21.3 VOL% (42.0-52.0); Hemoglobin 7.7 GM/DL (14.0-18.0); Immature Granulocytes % 4.3 %; Immature Granulocytes Absolute 0.73 #; Lymphocytes # 1.2 10*3/uL (1.4-4.0); Lymphocytes % 7.4 % (21.2-54.2); Mean Corpuscular HGB Conc 36.2 GM/DL (32-36); Mean Corpuscular Volume 61.9 FL (87-102); Mean Platelet Volume 11.4 FL (9.6-12.0); Monocytes % 6.1 % (1.7-12.7); Neutrophils % 82.1 % (38.7-73.9); Platelet Count 298 T/CUMM (130-400); Red Blood Count 3.44 MC/CUMM (3.8-5.5); Red Cell Distribution Width 15.4 % (9.3-17.3); White Blood Count 16.8 T/CUMM (4-12)
[2020-07-13 05:47] LABS: Albumin 0.9 G/DL (3.4-5.0); Bilirubin,Total 1.1 MG/DL (0.2-1.0); Calcium 7.5 MG/DL (8.5-10.1); Osmolality,Calculated 306.4 MOS/KG (273-304); Total Protein 4.8 G/DL (6.4-8.3)
[2020-07-13 06:02] LABS: Hypochromasia 2+; Lymphocytes 7 % (20-55); Platelet Estimate Normal; Segmented Neutrophils 86 % (50-85); Total Cells Counted 100
[2020-07-13 06:03] LABS: Microcytosis 2+; Target Cells Few
[2020-07-13] MEDS: INSULIN REGULAR 100 UNIT/ML SUBCUT SCH ×3 (06:35→18:30)
[2020-07-13] MEDS: MENTHOL/ZINC OXIDE OINT 71 GM JAR TOP SCH ×2 (09:12→22:12)
[2020-07-13] MEDS: cefTRIAXone 1,000 MG in SYRINGE 1 EACH IV SCH (11:43)
[2020-07-13] MEDS ORDERED: ACETAMINOPHEN 325 MG TABLET PO PRN (12:39)
[2020-07-13] MEDS ORDERED: MELATONIN 3 MG TABLET PO PRN (13:53)
[2020-07-13 16:31] LABS: Ferritin 6679.3 ng/ml (26-388)
[2020-07-13] MEDS: ASCORBIC ACID 500 MG TABLET PO SCH ×2 (16:50→22:13)
[2020-07-13] MEDS: DEXAMETHASONE 4 MG/1 ML VIAL IV SCH (16:50)
[2020-07-13] MEDS: FAMOTIDINE 20 MG TABLET PO SCH ×2 (16:50→22:13)
[2020-07-13] MEDS: CHOLECALCIFEROL 1,000 UNIT TABLET PO SCH (16:50)
[2020-07-13] MEDS: ZINC GLUCONATE 50 MG TABLET PO SCH (16:50)
[2020-07-13] MEDS: ENOXAPARIN 30 MG/0.3 ML SYRINGE SUBCUT SCH (22:12)
[2020-07-14] MEDS: INSULIN REGULAR 100 UNIT/ML SUBCUT SCH ×3 (00:57→15:52)
[2020-07-14 06:03] LABS: Basophils % 0.1 % (0.0-0.8); Hematocrit 23.8 VOL% (42.0-52.0); Hemoglobin 8.4 GM/DL (14.0-18.0); Immature Granulocytes % 2.8 %; Immature Granulocytes Absolute 0.42 #; Lymphocytes # 1.3 10*3/uL (1.4-4.0); Lymphocytes % 8.5 % (21.2-54.2); Mean Corpuscular HGB Conc 35.3 GM/DL (32-36); Mean Platelet Volume 11.3 FL (9.6-12.0); Monocytes % 4.7 % (1.7-12.7); Neutrophils % 83.9 % (38.7-73.9); Platelet Count 313 T/CUMM (130-400); Red Blood Count 3.78 MC/CUMM (3.8-5.5); White Blood Count 15.1 T/CUMM (4-12)
[2020-07-14 06:21] LABS: Albumin 1.1 G/DL (3.4-5.0); Bilirubin,Total 0.9 MG/DL (0.2-1.0); Calcium 7.5 MG/DL (8.5-10.1)
[2020-07-14 06:22] LABS: Platelet Estimate Adequate; Target Cells Slight
[2020-07-14 06:23] LABS: Hypochromasia 1+; Microcytosis 1+
[2020-07-14] MEDS: CHOLECALCIFEROL 1,000 UNIT TABLET PO SCH (09:54)
[2020-07-14] MEDS: FAMOTIDINE 20 MG TABLET PO SCH ×2 (09:54→21:31)
[2020-07-14] MEDS: ASCORBIC ACID 500 MG TABLET PO SCH ×2 (09:54→21:31)
[2020-07-14] MEDS: DEXAMETHASONE 4 MG/1 ML VIAL IV SCH (09:54)
[2020-07-14] MEDS: ZINC GLUCONATE 50 MG TABLET PO SCH (09:54)
[2020-07-14] MEDS: MENTHOL/ZINC OXIDE OINT 71 GM JAR TOP SCH ×2 (09:55→21:30)
[2020-07-14] MEDS: cefTRIAXone 1,000 MG in SYRINGE 1 EACH IV SCH (14:46)
[2020-07-14] MEDS: ENOXAPARIN 30 MG/0.3 ML SYRINGE SUBCUT SCH (21:30)
[2020-07-15] MEDS: INSULIN REGULAR 100 UNIT/ML SUBCUT SCH ×4 (00:24→13:18)
[2020-07-15 05:24] LABS: Basophils % 0.1 % (0.0-0.8); Hematocrit 23.8 VOL% (42.0-52.0); Hemoglobin 8.4 GM/DL (14.0-18.0); Immature Granulocytes % 1.8 %; Immature Granulocytes Absolute 0.31 #; Lymphocytes # 1.4 10*3/uL (1.4-4.0); Lymphocytes % 8.5 % (21.2-54.2); Mean Corpuscular HGB Conc 35.3 GM/DL (32-36); Mean Corpuscular Volume 63.1 FL (87-102); Mean Platelet Volume 11.3 FL (9.6-12.0); Monocytes % 6.2 % (1.7-12.7); Neutrophils % 83.4 % (38.7-73.9); Platelet Count 333 T/CUMM (130-400); Red Blood Count 3.77 MC/CUMM (3.8-5.5); Red Cell Distribution Width 16.5 % (9.3-17.3)
[2020-07-15 05:48] LABS: Calcium 7.6 MG/DL (8.5-10.1)
[2020-07-15 05:52] LABS: Hypochromasia 1+; Microcytosis 1+; Platelet Estimate Adequate; Target Cells Few
[2020-07-15] MEDS: ZINC GLUCONATE 50 MG TABLET PO SCH (08:56)
[2020-07-15] MEDS: CHOLECALCIFEROL 1,000 UNIT TABLET PO SCH (08:56)
[2020-07-15] MEDS: DEXAMETHASONE 4 MG/1 ML VIAL IV SCH (08:56)
[2020-07-15] MEDS: FAMOTIDINE 20 MG TABLET PO SCH ×2 (08:56→21:28)
[2020-07-15] MEDS: ASCORBIC ACID 500 MG TABLET PO SCH ×2 (08:56→21:28)
[2020-07-15] MEDS: MENTHOL/ZINC OXIDE OINT 71 GM JAR TOP SCH ×2 (13:18→21:27)
[2020-07-15] MEDS: cefTRIAXone 1,000 MG in SYRINGE 1 EACH IV SCH (13:18)
[2020-07-15] MEDS: ENOXAPARIN 30 MG/0.3 ML SYRINGE SUBCUT SCH (21:27)
[2020-07-16] MEDS: INSULIN REGULAR 100 UNIT/ML SUBCUT SCH ×5 (01:53→19:53)
[2020-07-16 07:16] LABS: Basophils % 0.1 % (0.0-0.8); Hematocrit 22.7 VOL% (42.0-52.0); Hemoglobin 7.8 GM/DL (14.0-18.0); Immature Granulocytes % 1.4 %; Lymphocytes # 1.2 10*3/uL (1.4-4.0); Mean Corpuscular HGB Conc 34.4 GM/DL (32-36); Mean Corpuscular Volume 65.2 FL (87-102); Monocytes % 5.8 % (1.7-12.7); Neutrophils % 84.7 % (38.7-73.9); Platelet Count 181 T/CUMM (130-400); Red Blood Count 3.48 MC/CUMM (3.8-5.5); Red Cell Distribution Width 16.7 % (9.3-17.3); White Blood Count 14.4 T/CUMM (4-12)
[2020-07-16 07:25] LABS: Calcium 7.6 MG/DL (8.5-10.1); Osmolality,Calculated 299.4 MOS/KG (273-304)
[2020-07-16 08:33] LABS: Hypochromasia 2+; Microcytosis 1+; Target Cells 1+
[2020-07-16 08:34] LABS: Anisocytosis 1+; Ovalocytes Slight; Platelet Estimate Adequate
[2020-07-16] MEDS: MENTHOL/ZINC OXIDE OINT 71 GM JAR TOP SCH ×2 (09:12→21:16)
[2020-07-16] MEDS: ZINC GLUCONATE 50 MG TABLET PO SCH (09:12)
[2020-07-16] MEDS: FAMOTIDINE 20 MG TABLET PO SCH ×2 (09:12→21:16)
[2020-07-16] MEDS: CHOLECALCIFEROL 1,000 UNIT TABLET PO SCH (09:12)
[2020-07-16] MEDS: ASCORBIC ACID 500 MG TABLET PO SCH ×2 (09:12→21:16)
[2020-07-16] MEDS: DEXAMETHASONE 4 MG/1 ML VIAL IV SCH (09:12)
[2020-07-16] MEDS: cefTRIAXone 1,000 MG in SYRINGE 1 EACH IV SCH (13:23)
[2020-07-16] MEDS: carvediloL 12.5 MG TABLET PEG SCH (21:16)
[2020-07-16] MEDS: ENOXAPARIN 30 MG/0.3 ML SYRINGE SUBCUT SCH (21:16)
[2020-07-17] MEDS: INSULIN REGULAR 100 UNIT/ML SUBCUT SCH ×3 (00:03→13:15)
[2020-07-17 05:55] LABS: Basophils % 0.1 % (0.0-0.8); Hematocrit 24.4 VOL% (42.0-52.0); Hemoglobin 8.2 GM/DL (14.0-18.0); Immature Granulocytes % 1.1 %; Immature Granulocytes Absolute 0.17 #; Lymphocytes # 1.1 10*3/uL (1.4-4.0); Lymphocytes % 7.4 % (21.2-54.2); Mean Corpuscular HGB Conc 33.6 GM/DL (32-36); Mean Corpuscular Volume 64.4 FL (87-102); Mean Platelet Volume 10.8 FL (9.6-12.0); Monocytes % 5.6 % (1.7-12.7); Neutrophils % 85.8 % (38.7-73.9); Platelet Count 316 T/CUMM (130-400); Red Blood Count 3.79 MC/CUMM (3.8-5.5); Red Cell Distribution Width 16.9 % (9.3-17.3); White Blood Count 14.9 T/CUMM (4-12)
[2020-07-17 06:22] LABS: Calcium 7.3 MG/DL (8.5-10.1); Osmolality,Calculated 300.3 MOS/KG (273-304)
[2020-07-17] MEDS: CHOLECALCIFEROL 1,000 UNIT TABLET PO SCH (09:16)
[2020-07-17] MEDS: FAMOTIDINE 20 MG TABLET PO SCH (09:16)
[2020-07-17] MEDS: ZINC GLUCONATE 50 MG TABLET PO SCH (09:16)
[2020-07-17] MEDS: DEXAMETHASONE 4 MG/1 ML VIAL IV SCH (09:16)
[2020-07-17] MEDS: carvediloL 12.5 MG TABLET PEG SCH (09:16)
[2020-07-17] MEDS: MENTHOL/ZINC OXIDE OINT 71 GM JAR TOP SCH (09:16)
[2020-07-17] MEDS: ASCORBIC ACID 500 MG TABLET PO SCH (09:16)
[2020-07-17] MEDS: cefTRIAXone 1,000 MG in SYRINGE 1 EACH IV SCH (13:05)
[2020-07-17 16:26] VITALS: BP 148/96
== END 2020-07-17 16:17 | disposition home health service (06) | DRG 871 ==
LOC: N.ED 11:09 → N.EDINP 15:12 → SUATTDRO 15:12 → N.ICU 16:45 → N.3E 07-12 14:57 → N.2E 07-13 14:52
PROVIDERS: ADMIT Internal Medicine; ATTEND Internal Medicine